=== PATIENT | male | born 1955 | race Caucasian/White ===

== ENCOUNTER 2016-11-15 06:21 | Emergency (ER) | payer MEDICAID ==
[2016-11-15 06:41] VITALS: TEMP 98.3; BMI 28.1
--- NOTE | 2016-11-15 07:36 | ED PDOC ---
Arrival/HPI - General Historian: Patient - History of Present Illness Time/Duration: < week Symptom Onset: Gradual <Marino Lechuga - Last Filed: 11/15/16 09:04> <Amrit Dodson - Last Filed: 11/15/16 13:13> - General Chief Complaint: Cough, Cold, Congestion Time Seen by Provider: 11/15/16 07:15 - History of Present Illness Narrative History of Present Illness (Text): 11/15/16 07:51 61 y/o male with hx DM presenting with complaints of a non-productive cough for 2 days. Patient notes associated subjective fever, chills and sore throat. He additionally complaints of chest pain associated with coughing episodes. The patient does not express shortness of breath, n/v/d or abdominal pain. He has not taken anything for his symptoms at home. He denies sick contacts or recent travel. (Marino Lechuga) Past Medical History - Travel History Have you recently traveled outside [place] w/in the past 3 mons?: No - Cardiac Hx Cardiac Disorders: Yes Hx Hypertension: Yes - Pulmonary Hx Respiratory Disorders: No - Neurological Hx Neurological Disorder: No - HEENT Hx HEENT Disorder: No - Renal Hx Renal Disorder: No - Endocrine/Metabolic Hx Endocrine Disorders: Yes Hx Diabetes Mellitus Type 2: Yes - Hematological/Oncological Hx Blood Disorders: No - Integumentary Hx Dermatological Disorder: No - Musculoskeletal/Rheumatological Hx Musculoskeletal Disorders: No - Gastrointestinal Hx Gastrointestinal Disorders: Yes Hx Gastritis: Yes - Genitourinary/Gynecological Hx Genitourinary Disorders: Yes Hx Prostate Problems: Yes (ENLARGED PROSTATE) - Psychiatric Hx Psychophysiologic Disorder: No Hx Substance Use: No - Anesthesia Hx Anesthesia: Yes Hx Anesthesia Reactions: No Hx Malignant Hyperthermia: No <Marino Lechuga - Last Filed: 11/15/16 09:04> Family/Social History - Physician Review Nursing Documentation Reviewed: Yes Family/Social History: Unknown Family HX Smoking Status: Never Smoked Hx Alcohol Use: No Hx Substance Use: No <Marino Lechuga - Last Filed: 11/15/16 09:04> Allergies/Home Meds <Marino Lechuga - Last Filed: 11/15/16 09:04> <Amrit Dodson - Last Filed: 11/15/16 13:13> Allergies/Adverse Reactions: Allergies Penicillins Allergy (Verified 11/15/16 06:41) RASH Home Medications: Home Meds Medication Instructions Recorded Confirmed Empagliflozin [Jardiance] 10 mg PO DAILY 09/05/15 11/15/16 Insulin Glargine, Recombina 6 units SC HS 09/05/15 11/15/16 [Lantus] Lisinopril 5 mg PO DAILY 09/05/15 11/15/16 Review of Systems - Physician Review All systems were reviewed & negative as marked: Yes - Review of Systems Constitutional: Normal. absent: Fevers Eyes: Normal ENT: Sore Throat. absent: Rhinorrhea, Sinus Congestion Cardiovascular: Chest Pain. absent: [place] Gastrointestinal: absent: Abdominal Pain, Nausea, Vomiting Genitourinary Male: absent: Dysuria, Frequency, Hematuria Musculoskeletal: absent: Back Pain, Neck Pain Skin: absent: Rash, Pruritis, Skin Lesions Psychiatric: absent: Anxiety, Depression <Marino Lechuga - Last Filed: 11/15/16 09:04> Physical Exam Vital Signs Reviewed: Yes Temperature: Afebrile Blood Pressure: Normal Pulse: Regular Respiratory Rate: Normal Appearance: Positive for: Well-Appearing, Non-Toxic Pain Distress: None Mental Status: Positive for: Alert and Oriented X 3 - Systems Exam Head: Present: Atraumatic, Normocephalic Pupils: Present: PERRL Extroacular Muscles: Present: EOMI Conjunctiva: Present: Normal Mouth: Present: Moist Mucous Membranes Pharnyx: No: ERYTHEMA, EXUDATE Neck: Present: Normal Range of Motion, Lymphadenopathy. No: Meningeal Signs Respiratory/Chest: Present: Clear to Auscultation, Good Air Exchange. No: Respiratory Distress, Accessory Muscle Use, Wheezes Cardiovascular: Present: Regular Rate and Rhythm, Normal S1, S2 Abdomen: Present: Normal Bowel Sounds. No: Tenderness, Distention Upper Extremity: Present: Normal Inspection. No: Cyanosis, Edema Lower Extremity: Present: Normal Inspection, CALF TENDERNESS, NORMAL PULSES. No : Edema Neurological: Present: GCS=15, CN II-XII Intact, Speech Normal Skin: Present: Warm, Dry Psychiatric: Present: Alert, Oriented x 3, Normal Insight, Normal Concentration <Marino Lechuga Last Filed: 11/15/16 09:04> Vital Signs Temp Pulse Resp BP Pulse Ox 11/15/16 09:27 92 H 16 124/80 98 11/15/16 06:45 90 18 123/67 97 11/15/16 06:40 98.3 F Medical Decision Making <Marino Lechuga - Last Filed: 11/15/16 09:04> - Lab Interpretations I have reviewed the lab results: Yes <Amrit Dodson - Last Filed: 11/15/16 13:13> ED Course and Treatment: 61 y/o male with hx DMII presenting with a non-productive cough and generalized malaise likely secondary to acute bronchitis. However given patient's history of diabetes and relatively advanced age with complaints of atypical chest pain we will r/o ACS as well as cardiogenic etiology of cough. - EKG - chest film - cardiac iso - mag level - CBC - PT, PTT - rapid flu - UA 11/15/16 09:28 Lab results and films reviewed. Leukocytosis noted. This is likely due to viral vs bacterial acute bronchitis. Influenza is negative. Cardiac enzymes are negative. Chest xray reviewed. There is no infiltrate or acute pathology. Patient will be discharged home with Levaquin 500mg PO daily for 7 days. He is instructed to see his PCP within the next 3 days for further evaluation of his symptoms. He is to return of symptoms change or worsen. (Marino Lechuga) Patient seen and examined with resident. Came up with treatment and disposition plan with resident. The patient is a 61 year old male who comes into the emergency department for evaluation of a nonproductive cough associated with a subjective fever, chills and sore throat. Additional HPI details as noted by the resident. Physical examination reveals no acute findings. EKG, Chest X-ray and lab work ordered to rule out ACS vs. other cardiac causes. Influenza serology ordered to rule out Influenza A vs. B. Patient EKG shows a Normal Sinus Rhythm at 84 BPM with a left anterior fascicular block. Patient serology is negative for Influenza A and B. Chest X- ray shows no active disease. Patient lab work shows leukocytosis. Patient will be discharged home with Levaquin. Results and plan was discussed with the patient, who expressed understanding. Patient in agreement with plan to be discharged home. Patient was advised to follow up with PMD or return if symptoms worsen or new concerning symptoms arise. 11/15/16 13:11 pt seen with resident. pt with cough, atypical cp with coughing. exam: gen: comfortable, on phone in nad head: nc/at cv ns1s2 lungs cta abd soft ntnd, ext no c/c/e b/l labs ekg unremarkable. pt stable for outpt managment return precautions advised. (Amrit Dodson) - Lab Interpretations Lab Results: 11/15/16 08:10 11/15/16 08:10 Lab Results 11/15/16 08:10: WBC 12.8 H, RBC 5.01, Hgb 14.8, Hct 43.2, MCV 86.2, MCH 29.5, MCHC 34.3, RDW 13.0, Plt Count 252, MPV 10.9, Gran % 67.4, Lymph % (Auto) 23.1, [place] % (Auto) 7.0 H, Eos % (Auto) 2.3, Baso % (Auto) 0.2, Gran # 8.63 H, Lymph # 3.0, [place] # 0.9 H, Eos # 0.3, Baso # 0.03, PT 10.5, INR 0.97, APTT 35.4 H, Sodium 137, Potassium 4.6, Chloride 100, Carbon Dioxide 30, Anion Gap 12, BUN 28 H, Creatinine 0.9, Est GFR ( Amer) > 60, Est GFR (Non-Af Amer) > 60, Random Glucose 153 H, Calcium 9.0, Magnesium 1.9, Total Bilirubin 0.5, AST 18, ALT 33, Alkaline Phosphatase 73, Lactate Dehydrogenase 353, Total Creatine Kinase 32 L, Troponin I < 0.01, NT-Pro-B Natriuret Pep 31.9, Total Protein 7.3, Albumin 3.9, Globulin 3.5, Albumin/Globulin Ratio 1.1, Urine Color Yellow, Urine Appearance Sl cloudy, Urine pH 7.0, Ur Specific [place] 1.020, Urine Protein Negative, Urine Glucose (UA) 100 H, Urine Ketones Negative, Urine Blood Negative, Urine Nitrate Negative, Urine Bilirubin Negative, Urine Urobilinogen 0.2, Ur Leukocyte Esterase Negative, Influenza Typ A,B (EIA) Negative for flu a/ b - RAD Interpretation Radiology Orders: 11/15/16 07:33 CHEST PORTABLE [RAD] Stat <Marino Lechuga - Last Filed: 11/15/16 09:04> - Scribe Statement The provider has reviewed the documentation as recorded by the Scribe <Amrit Dodson - Last Filed: 11/15/16 13:13> - Scribe Statement Thomas Escoto Provider Scribe Attestation: All medical record entries made by the Scribe were at my direction and personally dictated by me. I have reviewed the chart and agree that the record accurately reflects my personal performance of the history, physical exam, medical decision making, and the department course for this patient. I have also personally directed, reviewed, and agree with the discharge instructions and disposition. (Amrit Dodson) Disposition/Present on Arrival - Present on Arrival Any Indicators Present on Arrival: No History of DVT/PE: No History of Uncontrolled Diabetes: No Urinary Catheter: No History of Decub. Ulcer: No History Surgical Site Infection Following: None - Disposition Have Diagnosis and Disposition been Completed?: Yes Disposition Time: 09:04 Patient Plan: Discharge <Marino Lechuga - Last Filed: 11/15/16 09:04> <Amrit Dodson - Last Filed: 11/15/16 13:13> - Disposition Diagnosis: Acute bronchitis Disposition: HOME/ ROUTINE Discharge Instructions (ExitCare): Acute Bronchitis (ED) Additional Instructions: Please see your family physician within 3 days for further evaluation of your symptoms. You are prescribed an antibiotic called Levaquin. Please take this as directed for 7 days. Return to the ER if your symptoms worsen or change. Prescriptions: Levofloxacin [Levaquin] 500 mg PO DAILY #10 tablet Referrals: Manuel Smith MD [Primary Care Provider] - Follow up with primary
--- NOTE | 2016-11-15 08:05 | ED PDOC ---
Physical Exam Vital Signs Reviewed: Yes Vital Signs Temp Pulse Resp BP Pulse Ox 11/15/16 06:45 90 18 123/67 97 11/15/16 06:40 98.3 F Temperature: Afebrile Blood Pressure: Normal Pulse: Regular Respiratory Rate: Normal Appearance: Positive for: Well-Appearing, Non-Toxic, Comfortable Pain Distress: None Mental Status: Positive for: Alert and Oriented X 3 Medical Decision Making ED Course and Treatment: Patient seen and examined with resident. Came up with treatment and disposition plan with resident. The patient is a 61 year old male who comes into the emergency department for evaluation of a nonproductive cough associated with a subjective fever, chills and sore throat. Additional HPI details as noted by the resident. Physical examination reveals no acute findings. EKG, Chest X-ray and lab work ordered to rule out ACS vs. other cardiac causes. Influenza serology ordered to rule out Influenza A vs. B. - Lab Interpretations I have reviewed the lab results: Yes - RAD Interpretation Radiology Orders: 11/15/16 07:33 CHEST PORTABLE [RAD] Stat - Scribe Statement The provider has reviewed the documentation as recorded by the Scribe Thomas Escoto Provider Scribe Attestation: All medical record entries made by the Scribe were at my direction and personally dictated by me. I have reviewed the chart and agree that the record accurately reflects my personal performance of the history, physical exam, medical decision making, and the department course for this patient. I have also personally directed, reviewed, and agree with the discharge instructions and disposition. Disposition/Present on Arrival - Present on Arrival History of DVT/PE: No History of Uncontrolled Diabetes: No Urinary Catheter: No History of Decub. Ulcer: No History Surgical Site Infection Following: None
[2016-11-15 08:18] LABS: ADD MANUAL DIFF? NO
[2016-11-15 08:24] LABS: BASO # 0.03 K/mm3 (0.0-2.0); BASO % 0.2 % (0.0-3.0); EOS # 0.3 (0.0-0.7); EOS % 2.3 % (1.5-5.0); GRAN # 8.63 (1.4-6.5); GRAN % 67.4 % (50.0-68.0); HEMATOCRIT 43.2 % (42.0-52.0); LYMPH % 23.1 % (22.0-35.0); MEAN CELL VOLUME 86.2 fL (80.0-105.0); MEAN CORPUSCULAR HEMOGLOBIN 29.5 pg (25.0-35.0); MEAN CORPUSCULAR HGB CONC 34.3 g/dl (31.0-37.0); MEAN PLATELET VOLUME 10.9 fl (7.0-11.0); MONO # 0.9 (0.1-0.6); PLATELET COUNT 252 10^3/uL (120.0-450.0); URINE BILIRUBIN NEGATIVE (NEGATIVE); URINE BLOOD NEGATIVE (NEGATIVE); URINE GLUCOSE (UA) 100 mg/dL (NEGATIVE); URINE KETONE NEGATIVE (NEGATIVE); URINE LEUKOCYTE ESTERASE NEGATIVE Leu/uL (NEGATIVE); URINE PROTEIN NEGATIVE mg/dL (<30 mg/dL); URINE UROBILINOGEN 0.2 E.U./dL (<1 E.U./dL); WHITE BLOOD COUNT 12.8 10^3/ul (4.5-11.0)
[2016-11-15 08:28] LABS: URINE APPEARANCE SL CLOUDY (CLEAR); URINE COLOR YELLOW (YELLOW)
[2016-11-15 08:34] LABS: INR 0.97 (0.93-1.08); PARTIAL THROMBOPLASTIN TIME 35.4 Seconds (23.7-30.8)
[2016-11-15 08:39] LABS: ALB/GLOB RATIO 1.1 (1.1-1.8); ALKALINE PHOSPHATASE 73 U/L (38-133); ALT/SGPT 33 U/L (7-56); AST/SGOT 18 U/L (15-59); BILIRUBIN,TOTAL 0.5 mg/dL (0.2-1.3); BLOOD UREA NITROGEN 28 mg/dL (7-21); CARBON DIOXIDE 30 mmol/L (21-33); CHLORIDE 100 mmol/L (98-107); GFR AFRICAN-AMERICAN > 60; GLUCOSE,RANDOM 153 mg/dL (70-110); MAGNESIUM 1.9 mg/dL (1.7-2.2); POTASSIUM 4.6 mmol/L (3.6-5.0); SODIUM 137 mmol/L (132-148); TOTAL PROTEIN 7.3 g/dL (5.8-8.3)
[2016-11-15 08:57] LABS: TROPONIN I < 0.01 ng/mL
--- NOTE | 2016-11-15 09:20 | RAD ---
HISTORY: cough COMPARISON: No prior. FINDINGS: LUNGS: No active pulmonary disease. PLEURA: No significant pleural effusion identified, no pneumothorax apparent. CARDIOVASCULAR: Normal. OSSEOUS STRUCTURES: No significant abnormalities. VISUALIZED UPPER ABDOMEN: Normal. OTHER FINDINGS: None. IMPRESSION: No active disease.
[2016-11-15 09:29] VITALS: BP 124/80; PULSE 92; RESP 16; O2SAT 98
--- NOTE | 2016-11-15 16:47 | CARD ---
APPROVED REPORT EKG Measurement Heart [id number] <Conclusion> Normal sinus rhythm Left anterior fascicular block Minimal voltage criteria for LVH, may be normal variant Abnormal ECG
== END 2016-11-15 09:29 | disposition home or self-care (01) ==
LOC: ED 06:21
DX: J20.9 Acute bronchitis, unspecified (principal); I10 Essential (primary) hypertension; E11.9 Type 2 diabetes mellitus without complications

== ENCOUNTER 2018-01-28 07:24 | Day surgery (SDC) | payer OTHER ==
[2018-01-27 12:38] VITALS: BMI 28.7
[2018-01-28] MEDS ORDERED: Propofol 10 mg/ml Inj (20 ML) ONE ×2 (11:12→12:03)
[2018-01-28] MEDS ORDERED: Lidocaine 1% Inj (20ml) ONE (11:12)
[2018-01-28] MEDS ORDERED: Midazolam 2 MG/2 ML VIAL ONE (11:12)
[2018-01-28] MEDS ORDERED: ePHEDrine 50 mg/ml Inj ONE (11:38)
[2018-01-28] MEDS ORDERED: Neostigmine Methylsulfate 3mg/3ml Syringe IV ONE (12:13)
[2018-01-28] MEDS ORDERED: Oxycodone/Acetaminophen 5/325 mg Tab PO PRN (12:25)
[2018-01-28] MEDS ORDERED: Gentamicin 80mg/50ml NS 80 MG/50 ML BAG IVPB SCH (12:30)
[2018-01-28] MEDS ORDERED: HYDROmorphone 0.5 mg/0.5 ml ISec IVP PRN (12:30)
[2018-01-28] MEDS ORDERED: Gentamicin 80 mg/2mL Inj. IVPB ONE (12:50)
--- NOTE | 2018-01-28 12:53 | RAD ---
PROCEDURE: CHEST RADIOGRAPH, 1 VIEW HISTORY: decreased saturation COMPARISON: 01/27/2018 FINDINGS: LUNGS: Minimal linear atelectasis at the right lung base. Poor inspiratory effort PLEURA: No pneumothorax or pleural fluid seen. CARDIOVASCULAR: Mild cardiomegaly OSSEOUS STRUCTURES: No significant abnormalities. VISUALIZED UPPER ABDOMEN: Normal. OTHER FINDINGS: None. IMPRESSION: Minimal linear atelectasis at the right lung base. Poor inspiratory effort
[2018-01-28] MEDS ORDERED: Mometasone 220 mcg/puff-14 puff Inh IH SCH (22:30)
[2018-01-28] MEDS ORDERED: Alum-Mag Hydrox-Simethicone Susp (30 mL) PO ONE (22:42)
--- NOTE | 2018-01-28 23:03 | CP.PCM.PN ---
Subjective - Date & Time of Evaluation Date of Evaluation: 01/28/18 Time of Evaluation: 22:52 - Subjective Subjective: called by nurse to see pt has HR of 121, pt is s/p prostat surgery .../was admitted today as per nurse in pacu pt,s pulse ox dropped and they put him on O2 ,3 litters AND admitted him on the floor , no operative note found in the meditec. no labs from today . pt has hx of diabetes htn and asthma.pt apears uncomfortable c/o abdominal pain states he has no eaten x24 hrs and had pain when he moves his leg temp is 98 pulse ox is 97 %. Objective - Vital Signs/Intake and Output Vital Signs (last 24 hours): Temp Pulse Resp BP Pulse Ox 98.2 F 89 16 111/57 L 95 01/28/18 15:41 01/28/18 15:41 01/28/18 15:41 01/28/18 15:41 01/28/18 15:41 Intake and Output: 01/28/18 01/29/18 18:59 06:59 Intake Total 75 480 Output Total 700 Balance 75 -220 - Medications Medications: Current Medications Acetaminophen (Tylenol 325mg Tab) 650 mg PO Q4H PRN PRN Reason: Pain, moderate (4-7) Doxycycline Hyclate (Doryx) 100 mg PO Q12 SHELLI PRN Reason: Protocol Home Med (Home Med) 1 unit PO QAM [facility] Gentamicin Sulfate/Sodium Chloride (Gentamicin 80mg/50ml Ns) 80 mg in 50 mls @ 100 mls/hr IVPB Q24H SHELLI PRN Reason: Protocol Ciprofloxacin (Cipro 400mg/200ml Dsw) 400 mg in 200 mls @ 133.3 mls/hr IVPB Q12 SHELLI PRN Reason: Protocol Stop: 01/29/18 11:31 Insulin Detemir (Levemir) 9 unit SC Q12H [facility] Insulin Human Regular (Humulin R Low) 0 units SC ACHS SHELLI PRN Reason: Protocol Metoclopramide HCl (Reglan) 10 mg IV ONCE PRN PRN Reason: Nausea/Vomiting Mometasone Furoate (Asmanex Twisthaler 220 Mcg) 1 puff IH QPM [facility] Oxycodone/Acetaminophen (Percocet 5/325 Mg Tab) 1 tab PO Q6H PRN PRN Reason: Bladder Spasm Stop: 01/31/18 12:26 - Constitutional Appears: Other - Head Exam Head Exam: NORMOCEPHALIC - Eye Exam Eye Exam: Normal appearance Pupil Exam: PERRL - ENT Exam ENT Exam: Mucous Membranes Moist - Neck Exam Neck Exam: Full ROM - Respiratory Exam Respiratory Exam: Clear to Ausculation Bilateral - Cardiovascular Exam Cardiovascular Exam: RRR, +S1, +S2 - GI/Abdominal Exam GI & Abdominal Exam: Soft, Normal Bowel Sounds - Extremities Exam Extremities Exam: Full ROM - Neurological Exam Neurological Exam: Alert, Awake, CN II-XII Intact, Oriented x3 - Psychiatric Exam Psychiatric exam: Normal Affect - Skin Skin Exam: Dry, Normal Color Assessment and Plan - Assessment and Plan (Free Text) Assessment: s/p prostat surgery / abdominal pain . /tachy cardia. hx of DM nad asthma. Plan: maalox 30cc po x1 . cbc bmp abg stat.
[2018-01-28] MEDS: Insulin Detemir 100 units/ml Vial (Levemir) SC SCH (23:04)
[2018-01-28 23:22] LABS: BASO # 0.01 K/mm3 (0.0-2.0); GRAN # 18.51 (1.4-6.5); GRAN % 84.8 % (50.0-68.0); HEMOGLOBIN 15.2 g/dL (14.0-18.0); LYMPH # 2.2 (1.2-3.4); LYMPH % 10.2 % (22.0-35.0); MEAN CELL VOLUME 83.5 fl (80.0-105.0); MEAN CORPUSCULAR HEMOGLOBIN 29.2 pg (25.0-35.0); MEAN CORPUSCULAR HGB CONC 34.9 g/dl (31.0-37.0); MEAN PLATELET VOLUME 10.6 fl (7.0-11.0); MONO # 1.1 (0.1-0.6); RBC 5.21 10^6/uL (3.5-6.1); RED CELL DISTRIBUTION WIDTH 13.1 % (11.5-14.5); WHITE BLOOD COUNT 21.9 10^3/ul (4.5-11.0)
[2018-01-28 23:39] LABS: BLOOD UREA NITROGEN 15 mg/dL (7-21); CALCIUM 8.9 mg/dL (8.4-10.5); GFR AFRICAN-AMERICAN > 60; GFR NON-AFRICAN AMERICAN > 60
[2018-01-29 00:26] LABS: ARTERIAL BLOOD GAS HCO3 24.6 mmol/L (21-28); ARTERIAL BLOOD GAS HEMOGLOBIN 12.9 g/dL (11.7-17.4); ARTERIAL BLOOD GAS O2 CAPACITY 17.8 mL/dl (16-24); ARTERIAL BLOOD GAS O2 CONTENT 17.7 ML/dl (15-23); ARTERIAL BLOOD GAS O2 SAT 99.2 % (95-98); ARTERIAL BLOOD GAS PCO2 38 mm/Hg (35-45); ARTERIAL BLOOD GAS PH 7.42 (7.35-7.45); ARTERIAL BLOOD GAS TCO2 25.8 mmol.L (22-28)
[2018-01-29] MEDS ORDERED: Aztreonam 1 Gm in NS 100mL 100 ML IVPB STA (01:37)
--- NOTE | 2018-01-29 06:33 | PCM.URO ---
Urology Progress Note - Objective Lab Studies: Reviewed (maintain gregg for now) Lab Results Last 24 Hours: Laboratory Results - last 24 hr 01/28/18 01/28/18 01/28/18 21:37 23:10 23:10 WBC 21.9 H D RBC 5.21 Hgb 15.2 Hct 43.5 MCV 83.5 MCH 29.2 MCHC 34.9 RDW 13.1 Plt Count 264 MPV 10.6 Gran % 84.8 H Lymph % (Auto) 10.2 L [place] % (Auto) 5.0 Eos % (Auto) 0.0 L Baso % (Auto) 0.0 Gran # 18.51 H Lymph # (Auto) 2.2 [place] # (Auto) 1.1 H Eos # (Auto) 0.0 Baso # (Auto) 0.01 pCO2 pO2 HCO3 ABG pH ABG Total CO2 ABG O2 Saturation ABG O2 Content ABG Base Excess ABG Hemoglobin ABG Carboxyhemoglobin POC ABG HHb (Measured) ABG Methemoglobin ABG O2 Capacity Hgb O2 Saturation FiO2 Sodium 139 Potassium 4.1 Chloride 101 Carbon Dioxide 26 Anion Gap 16 BUN 15 Creatinine 0.7 L Est GFR ( Amer) > 60 Est GFR (Non-Af Amer) > 60 POC Glucose (mg/dL) 169 H Random Glucose 172 H Calcium 8.9 01/29/18 01/29/18 00:18 06:04 WBC RBC Hgb Hct MCV MCH MCHC RDW Plt Count MPV Gran % Lymph % (Auto) [place] % (Auto) Eos % (Auto) Baso % (Auto) Gran # Lymph # (Auto) [place] # (Auto) Eos # (Auto) Baso # (Auto) pCO2 38 pO2 109.0 H HCO3 24.6 ABG pH 7.42 ABG Total CO2 25.8 ABG O2 Saturation 99.2 H ABG O2 Content 17.7 ABG Base Excess 0.3 ABG Hemoglobin 12.9 ABG Carboxyhemoglobin 1.7 H POC ABG HHb (Measured) 0.8 ABG Methemoglobin 0.8 ABG O2 Capacity 17.8 Hgb O2 Saturation 96.8 FiO2 32.0 Sodium Potassium Chloride Carbon Dioxide Anion Gap BUN Creatinine Est GFR ( Amer) Est GFR (Non-Af Amer) POC Glucose (mg/dL) 125 H Random Glucose Calcium Intake & Output: Intake & Output 01/28/18 01/28/18 01/29/18 06:59 18:59 06:59 Intake Total 75 480 Output Total 700 Balance 75 -220 Intake: IV 75 Oral 480 Output: Urine 700 Urethral (Gregg) 700 Other: # Bowel Movements 0 Vital Signs: Vital Signs - 24 hr 01/28/18 01/28/18 01/28/18 07:45 12:26 12:41 Temperature 97.7 F 98.2 F 98.2 F Pulse Rate 78 103 H 89 Respiratory 20 13 15 Rate Blood Pressure 134/73 135/78 136/80 O2 Sat by Pulse 98 93 L 95 Oximetry 01/28/18 01/28/18 01/28/18 12:56 13:11 13:26 Temperature 98.2 F 98.2 F 98.2 F Pulse Rate 72 91 H 70 Respiratory 16 15 16 Rate Blood Pressure 121/70 120/65 107/61 O2 Sat by Pulse 96 95 95 Oximetry 01/28/18 01/28/18 01/28/18 13:41 13:56 14:11 Temperature 98.2 F 98.2 F 98.2 F Pulse Rate 78 78 81 Respiratory 16 16 16 Rate Blood Pressure 135/78 113/68 126/58 L O2 Sat by Pulse 94 L 94 L 95 Oximetry 01/28/18 01/28/18 01/28/18 14:26 14:41 14:56 Temperature 98.2 F 98.2 F 98.2 F Pulse Rate 79 82 85 Respiratory 16 16 15 Rate Blood Pressure 120/65 108/60 109/54 L O2 Sat by Pulse 93 L 97 97 Oximetry 01/28/18 01/28/18 01/28/18 15:11 15:26 15:41 Temperature 98.2 F 98.2 F 98.2 F Pulse Rate 89 91 H 89 Respiratory 16 16 16 Rate Blood Pressure 97/56 L 133/69 111/57 L O2 Sat by Pulse 95 94 L 95 Oximetry 01/28/18 01/28/18 22:00 23:15 Temperature 98.5 F 98.3 F Pulse Rate 120 H 87 Respiratory 20 18 Rate Blood Pressure 114/74 125/76 O2 Sat by Pulse 96 Oximetry
[2018-01-29 07:29] LABS: BASO # 0.02 K/mm3 (0.0-2.0); BASO % 0.1 % (0.0-3.0); EOS # 0.2 (0.0-0.7); EOS % 1.2 % (1.5-5.0); GRAN # 11.86 (1.4-6.5); HEMOGLOBIN 13.9 g/dL (14.0-18.0); LYMPH # 2.9 (1.2-3.4); MEAN CELL VOLUME 84.4 fl (80.0-105.0); MEAN CORPUSCULAR HEMOGLOBIN 28.6 pg (25.0-35.0); MEAN CORPUSCULAR HGB CONC 33.9 g/dl (31.0-37.0); MEAN PLATELET VOLUME 10.5 fl (7.0-11.0); MONO # 1.1 (0.1-0.6); MONO % 6.7 % (1.0-6.0); RBC 4.86 10^6/uL (3.5-6.1); RED CELL DISTRIBUTION WIDTH 13.2 % (11.5-14.5)
[2018-01-29] MEDS: Insulin Reg-LOW-Coverage SC SCH ×2 (07:30→12:00)
[2018-01-29 07:53] VITALS: BP 100/82; PULSE 90; RESP 20; TEMP 98.5; O2SAT 97
--- NOTE | 2018-01-29 08:17 | RAD ---
HISTORY: SOB COMPARISON: 01/28/2018 TECHNIQUE: Chest PA and lateral FINDINGS: LUNGS: There is an infiltrate at the left lung base that partially obscures the diaphragmatic border. This could represent atelectasis or early pneumonia. There is linear atelectasis in the right lung PLEURA: No significant pleural effusion identified. No pneumothorax apparent. CARDIOVASCULAR: Normal. OSSEOUS STRUCTURES: No significant abnormalities. VISUALIZED UPPER ABDOMEN: Normal. OTHER FINDINGS: None. IMPRESSION: There is an infiltrate at the left lung base that partially obscures the diaphragmatic border. This could represent atelectasis or early pneumonia. There is linear atelectasis in the right lung
[2018-01-29] MEDS: Insulin Detemir 100 units/ml Vial (Levemir) SC SCH (09:51)
[2018-01-29] MEDS ORDERED: Ciprofloxacin 400mg/200ml D5W 400 MG/200 ML BAG IVPB SCH (10:00)
[2018-01-29] MEDS ORDERED: EMPAGLIFLOZIN PO SCH (10:00)
--- NOTE | 2018-01-30 12:19 | PN ---
DATE: 01/30/2018 IMMEDIATE POSTOP NOTE See the history and physical, see the operative note. The patient underwent a PVP Greenlight laser. He is in the recovery room now. The vital signs are stable. There were no complications. The diagnosis is voiding dysfunction. I do want to mention the patient was having low O2 sats and the management will be as per the Anesthesia team, but from Urology standpoint, as long as his urine is clear and he looks well, we are going to admit the patient and monitor closely and see what Anesthesia says at this point. So, in the immediate postop period, the patient is stable. Vital signs are all stable. The patient is experiencing low O2 saturations on the monitor and we are having Anesthesia manage this with us. In the meantime, we are going to order a pulmonary incentive spirometry, etc., to see what they say we have to postpone his discharge. ADDENDUM We have subsequently admitted the patient to monitor more closely as per the request of the anesthesiologist that they should be putting notes in. Mikel Stephenson MD
--- NOTE | 2018-01-30 15:43 | HP ---
UROLOGY ADMISSION HISTORY AND PHYSICAL REASON FOR ADMISSION: Further treatment of voiding dysfunction, decreased force of stream, incomplete bladder emptying, urinary retention and the plan is as follows. HISTORY: This is a very pleasant gentleman who is young 62-year-old gentleman who presented to us with voiding dysfunction, irritative and obstructive complaint, , incomplete bladder emptying, decreased force of stream, incomplete emptying, pushing strain to urinate. He also complains of frequency and nocturia. We discussed workup. We discussed the urodynamics. We discussed different testing. The patient has no other significant urologic history. He is here today for PVP (photovaporization) GreenLight laser energy, TURP (transurethral resection of the prostate). PAST MEDICAL AND SURGICAL HISTORY: No history of an MA or CVA. SOCIAL HISTORY: Essentially unremarkable. He lives with his . REVIEW OF SYSTEMS: As listed above, noncontributory. No weight loss, chest pain, shortness of breath. MEDICATIONS: See chart. ALLERGIES: REVIEWED. PHYSICAL EXAMINATION GENERAL: Well-nourished male in no apparent distress. VITAL SIGNS: Within normal limits. LYMPHATIC: No cervical or axillary lymphadenopathy. Sclerae noninjected. LUNGS: Clear. HEART: Normal S1, S2. ABDOMEN: Overall soft, nontender. No flank masses appreciated. GENITOURINARY: Normal male phallus. No testicular masses. RECTAL: A 20-30 gram prostate, soft and smooth. LABORATORY DATA: See chart. PSA noted. BUN and creatinine noted. DIAGNOSES: Voiding dysfunction, decreased force of stream, incomplete bladder emptying and urinary retention. We discussed options with the patient at length. He is only 62 years old. We discussed the timing for the surgical intervention. We discussed noninvasive therapy. We discussed medical therapy. The medications are not helping. He is here today for photovaporization GreenLight laser energy, transurethral resection of the prostate. PLAN: As follows, 1. Antibiotic prophylaxis. 2. PVP GreenLight laser. I discussed with the patient prior to today and again today, reminded him about ejaculatory dysfunction and specifically, retrograde ejaculation and . Discussed all these options. We are going to plan to proceed with the following; antibiotic prophylaxis and PVP GreenLight laser. Mikel Stephenson MD [facility] # [id number]
--- NOTE | 2018-02-02 08:39 | OP ---
PROCEDURE DATE: 01/28/2018 PREOPERATIVE DIAGNOSES: Urinary retention, voiding dysfunction, enlarged prostate, visually occlusive prostate. POSTOPERATIVE DIAGNOSES: Urinary retention, voiding dysfunction, enlarged prostate, visually occlusive prostate. PROCEDURES: Photovaporization GreenLight laser energy, transurethral resection of the prostate. COMPLICATIONS: None. BLOOD LOSS: Less than 25 mL. INDICATIONS: See history and physical for further details. A very pleasant gentleman. We discussed with the patient risk of expectation of ejaculatory dysfunction, specifically retrograde ejaculation. We discussed with the patient risks of erectile dysfunction, although less common and would not as expected. We discussed with the patient possible non-improvement in complaints. We discussed all these with the patient at length. We also discussed the benefits. We discussed the benefits of better flow of urination. We discussed the benefits of better emptying. Perhaps, we also discussed the benefits of both irritative and obstructive complaints. We discussed most benefits and he is here for the above procedure. PROCEDURE IN DETAILS: After obtaining informed consent, the patient was placed on a table, routine monitor was placed. Time-out was called to confirm the patient positioning. Antibiotic prophylaxis was used. We introduced a cystoscope via urethra. Anterior urethra is normal, no stricture. Verumontanum is visually occlusive about 2-3 cm via pictures included in the chart. We identified ureteral orifice. We now worked diligently quickly. We set our settings initially at 80 gomez. It eventually went up to 120, and we started between 5 and 7. We went 7 to 11 and 5 to 1. carefully, we were able to do a wide-open prostrate. We then checked for hemostasis; any hemostasis needed was accomplished. We then turned ourselves to the anterior between 11 and 1. Again, we identified the landmarks of the bladder neck. . We kept checking landmarks. We now inspected, it is wide open. The patient was taken to . The patient tolerated the procedure without any complications. Mikel Stephenson MD
== END 2018-01-29 14:45 | disposition home or self-care (01) ==
LOC: SDS 07:24 → 5RSO 15:53 → SDS 01-29 14:45
PROVIDERS: ATTEND Urology
DX: N40.1 Benign prostatic hyperplasia with lower urinary tract symptoms (principal); R33.8 Other retention of urine; E11.9 Type 2 diabetes mellitus without complications; I10 Essential (primary) hypertension; J45.909 Unspecified asthma, uncomplicated; Z79.4 Long term (current) use of insulin
CPT/HCPCS: 36415 ×2; 52648; 71045; 71046; 80048; 82803; 82948 ×2; 85025 ×2; 87040; A4358; J0744 ×2; J1170; J1580 ×2; J2250; J2405; J2704; J2710; J2765; J3010; J7030; J7120

== ENCOUNTER 2018-02-21 04:51 | Emergency (ER) | payer OTHER ==
[2018-02-21 04:51] VITALS: BMI 28.7
[2018-02-21 05:14] VITALS: BP 124/76
--- NOTE | 2018-02-21 05:41 | ED PDOC ---
Arrival/HPI - General Chief Complaint: Lower Extremity Problem/Injury Time Seen by Provider: 02/21/18 05:19 Historian: Patient - History of Present Illness Narrative History of Present Illness (Text): 02/21/18 05:40 A 62 year old male, whose past medical history includes diabetes type 2, hypertension, and asthma, presents to the emergency department complaining of uncomfortable sensation to bottom of right foot starting today. Patient reports he feels he may have stepped on something however is uncertain. Patient denies any other complaints at this time. No PMD Past Medical History - Provider Review Nursing Documentation Reviewed: Yes - Cardiac Hx Hypertension: Yes Hx Pacemaker: No - Pulmonary Hx Asthma: Yes - Neurological Hx Neurological Disorder: No - HEENT Hx HEENT Disorder: No - Renal Hx Renal Disorder: No - Endocrine/Metabolic Hx Endocrine Disorders: Yes Hx Diabetes Mellitus Type 2: Yes - Hematological/Oncological Hx Blood Disorders: No - Integumentary Hx Dermatological Disorder: No - Musculoskeletal/Rheumatological Hx Musculoskeletal Disorders: No Hx Falls: No - Gastrointestinal Hx Gastrointestinal Disorders: Yes - Genitourinary/Gynecological Hx Genitourinary Disorders: Yes Hx Prostate Problems: Yes (ENLARGED PROSTATE) Other/Comment: BPH, Cystoscopy w/ urethral dilatation 02/01/16 - Psychiatric Hx Emotional Abuse: No Hx Physical Abuse: No Hx Substance Use: No - Anesthesia Hx Anesthesia Reactions: No Hx Malignant Hyperthermia: No - Suicidal Assessment Feels Threatened In Home Enviroment: No Family/Social History - Physician Review Nursing Documentation Reviewed: Yes Family/Social History: No Known Family HX Smoking Status: Never Smoked Hx Alcohol Use: No Hx Substance Use: No Allergies/Home Meds Allergies/Adverse Reactions: Allergies Penicillins Allergy (Verified 01/27/18 12:38) RASH Home Medications: Home Meds Medication Instructions Recorded Confirmed Empagliflozin [Jardiance] 10 mg PO QAM 09/05/15 01/28/18 Insulin Glargine, Recombina 18 units SC HS 09/05/15 01/28/18 [Lantus] metFORMIN [glucOPHAGE] 500 mg PO DIN 11/11/17 01/28/18 Review of Systems - Physician Review All systems were reviewed & negative as marked: Yes - Review of Systems Constitutional: absent: Fevers Musculoskeletal: absent: Other (uncomfortable feeling to bottom of right foot) Physical Exam Vital Signs Reviewed: Yes Vital Signs Temp Pulse Resp BP Pulse Ox 02/21/18 05:13 98.6 F 94 H 17 124/76 98 Temperature: Afebrile Blood Pressure: Normal Pulse: Regular Respiratory Rate: Normal Appearance: Positive for: Well-Appearing, Non-Toxic, Comfortable Pain Distress: None Mental Status: Positive for: Alert and Oriented X 3 - Systems Exam Upper Extremity: Present: Normal Inspection. No: Cyanosis, Edema Lower Extremity: Present: Normal Inspection, Other (R plantar foot with callus to midfoot, no foreign body noted, no swelling, erythema, puncture, purulent discharge). No: Edema Neurological: Present: GCS=15, CN II-XII Intact, Speech Normal Skin: Present: Warm, Dry, Normal Color. No: Rashes Psychiatric: Present: Alert, Oriented x 3 Medical Decision Making ED Course and Treatment: 02/21/18 05:43 Impression: 62 year old male with uncomfortable sensation to bottom of right foot. Plan: -- Right Foot X-Ray -- Reassess and disposition Progress Notes: Patient seen and examined. XR of R foot done which was unremarkable. Patient advised to watch for any signs of infection, and to follow up with his PMD or a process assistant as needed. - RAD Interpretation Narrative RAD Interpretations (Text): R foot XR- no fx/dislocation/foreign body noted Radiology Orders: 02/21/18 05:37 FOOT RIGHT 3 VIEWS ROUTINE [RAD] Stat Senior Nurse Manager: ED Physician - Scribe Statement The provider has reviewed the documentation as recorded by the Cholo Chang Provider Scribe Attestation: All medical record entries made by the Cholo were at my direction and personally dictated by me. I have reviewed the chart and agree that the record accurately reflects my personal performance of the history, physical exam, medical decision making, and the department course for this patient. I have also personally directed, reviewed, and agree with the discharge instructions and disposition. Disposition/Present on Arrival - Present on Arrival Any Indicators Present on Arrival: No History of DVT/PE: No History of Uncontrolled Diabetes: No Urinary Catheter: Yes History of Decub. Ulcer: No History Surgical Site Infection Following: Orthopedic Procedures, None - Disposition Have Diagnosis and Disposition been Completed?: Yes Diagnosis: Left foot pain Disposition: HOME/ ROUTINE Disposition Time: 07:00 Patient Problems: Current Active Problems Problem Status Onset Left foot pain Acute Condition: GOOD Discharge Instructions (ExitCare): Foreign Body in Skin (DC) Additional Instructions: SYBIL CRAIG, thank you for letting us take care of you today. Your provider was Genevieve Arevalo MD and you were treated for right foot. The emergency medical care you received today was directed at your acute symptoms. If you were prescribed any medication, please fill it and take as directed. It may take several days for your symptoms to resolve. Return to the Emergency Department if your symptoms worsen, do not improve, or if you have any other problems. Please contact your doctor or call one of the physicians/clinics you have been referred to that are listed on the Patient Visit Information form that is included in your discharge packet. Bring any paperwork you were given at discharge with you along with any medications you are taking to your follow up visit. Our treatment cannot replace ongoing medical care by a primary care provider outside of the emergency department. Thank you for allowing the [facility] team to be part of your care today. If you had an X-Ray or CT scan: A Radiologist will review the ED reading if any change in treatment is needed we will contact you. If you had a blood, urine, or wound culture: It will take several days for the results, if any change in treatment is needed we will contact you. If you had an STI test: It will take 48 hours for the results. Please call after 1 week if you have not heard back. Referrals: Manuel Smith MD [Primary Care Provider] - Follow up with primary Forms: [employer] (Croatian)
--- NOTE | 2018-02-21 08:54 | RAD ---
Date of service: 02/21/2018 PROCEDURE: Right Foot Radiographs. HISTORY: pain- poss f/b COMPARISON: None. FINDINGS: BONES: Normal. No fracture. JOINTS: Normal. SOFT TISSUES: Normal. OTHER FINDINGS: None. IMPRESSION: Normal right foot radiographs.
[2018-02-21 08:56] VITALS: PULSE 92; RESP 18; TEMP 98.1; O2SAT 99
== END 2018-02-21 08:00 | disposition home or self-care (01) ==
LOC: ED 04:51
DX: M79.671 Pain in right foot (principal)